=== PATIENT | male | born 1955 | race Caucasian/White ===

== ENCOUNTER → 2022-06-28 | Outpatient (REF) | payer MEDICARE, OTHER ==
[2022-06-28 17:46] LABS: APPEARANCE, URINE MANUAL HAZY (CLEAR); BILIRUBIN, URINE MANUAL NEGATIVE (NEGATIVE); BLOOD URINE MANUAL TRACE (NEGATIVE); COLOR, URINE MANUAL YELLOW (YELLOW); GLUCOSE, URINE (UA) MANUAL NEGATIVE (NEGATIVE); KETONE, URINE MANUAL NEGATIVE (NEGATIVE); LEUKOCYTE ESTERASE, URINE MAN POSITIVE (NEGATIVE); NITRITE, URINE MANUAL POSITIVE (NEGATIVE); PROTEIN, URINE MANUAL TRACE mg/dL (NEGATIVE); SPECIFIC GRAVITY,URINE MANUAL 1.015 (1.002-1.035); UROBILINOGEN, URINE MANUAL NORMAL (NORMAL)
[2022-06-28 18:38] LABS: WBC, URINE TNTC /hpf (0-3)
[2022-06-28 18:39] LABS: BACTERIA, URINE LARGE AMOUNT; SQUAMOUS EPITHELIAL CELL URINE SMALL AMOUNT /hpf (SMALL AMT)
== END ==
LOC: M SMT 17:02
PROVIDERS: ATTEND Physician Assistant
DX: R97.20 Elevated prostate specific antigen [PSA] (principal); R30.0 Dysuria

== ENCOUNTER 2022-09-07 09:56 | Day surgery (SDC) | payer MEDICARE, OTHER ==
[~2022-09-07] VITALS: Ht 175.3 cm; Wt 112.5 kg
[~2022-09-07 09:56] MED LIST: ATOR1TAB19 PO; LIDOCAINE 2% 100MG/5ML SDV (FOR ANES.) As Ordered ONE; LOSA100T8 PO; NS 1,000 ML IV ONE; TAMS1CAP17 PO; propofoL 200 MG/20 ML VIAL As Ordered ONE
[2022-09-07 12:08] VITALS: BP 136/83
== END 2022-09-07 12:19 | disposition home or self-care (01) ==
LOC: M OPP 09:56
PROVIDERS: ATTEND Surgery
DX: Z12.11 Encounter for screening for malignant neoplasm of colon (principal); Z86.010 Personal history of colon polyps; D12.6 Benign neoplasm of colon, unspecified; K64.4 Residual hemorrhoidal skin tags; K64.8 Other hemorrhoids; K57.30 Diverticulosis of large intestine without perforation or abscess without bleeding; Z85.47 Personal history of malignant neoplasm of testis; Z80.43 Family history of malignant neoplasm of testis; Z92.21 Personal history of antineoplastic chemotherapy; Z79.02 Long term (current) use of antithrombotics/antiplatelets; Z79.899 Other long term (current) drug therapy; Z88.2 Allergy status to sulfonamides

== ENCOUNTER → 2025-05-13 | Outpatient (CLI) | payer MEDICARE, OTHER ==
[~2025-05-13] MED LIST changes: +ISOVUE-300 61% 100 ML VIAL As Ordered ONE; -LIDOCAINE 2% 100MG/5ML SDV (FOR ANES.) As Ordered ONE; -NS 1,000 ML IV ONE; +methylPREDNISolone 80 MG/ML SUSP 1 ML VIAL As Ordered ONE; -propofoL 200 MG/20 ML VIAL As Ordered ONE
== END ==
LOC: M RAD 12:39
PROVIDERS: ATTEND Physician Assistant Medical
DX: M25.511 Pain in right shoulder (principal)
CPT/HCPCS: 20610; 77002; J0665; J1010; Q9967